=== PATIENT | female | born 1985 | race Caucasian/White ===

== ENCOUNTER 2017-05-06 19:48 | Observation (INO) | payer BC ==
[~2017-05-06] VITALS: Ht 162.6 cm; Wt 67.0 kg
[2017-05-06 20:13] VITALS: BP 121/64
[2017-05-06 20:36] LABS: MEAN CORPUSCULAR HEMOGLOBIN 31.4 pg (27.0-34.8); MEAN CORPUSCULAR HGB CONC 34.1 g/dL (32.4-35.8); MEAN PLATELET VOLUME 7.8 fL (7.4-10.4); PLATELET COUNT 248 x10^3/uL (130-400); RED BLOOD COUNT 4.43 x10^6/uL (3.82-5.3); RED CELL DISTRIBUTION WIDTH 13.1 % (9.6-15.2)
[2017-05-06 20:36] LABS: MICROSCOPIC AUTO
[2017-05-06 20:43] LABS: ALBUMIN 2.6 g/dL (3.4-5.0); ANION GAP 7 mmol/L (5-15); CALCIUM 8.5 mg/dL (8.5-10.1); CHLORIDE 108 mmol/L (98-107)
[2017-05-06 20:47] LABS: ALANINE AMINOTRANSFERASE 13 U/L (12-78); ALKALINE PHOSPHATASE 66 U/L (45-117); BILIRUBIN,TOTAL 0.4 mg/dL (0.2-1.0); CREATININE 0.47 mg/dL (0.55-1.02); TOTAL PROTEIN 6.4 g/dL (6.4-8.2)
[2017-05-06 21:04] LABS: BASOPHILS # (AUTO) 0.02 x10^3/uL (0-0.1); BASOPHILS % (AUTO) 0 % (0-1); EOSINOPHILS # (AUTO) 0.05 x10^3/uL (0-0.4); EOSINOPHILS % (AUTO) 0 % (1-7); LYMPHOCYTES # (AUTO) 2.19 x10^3/uL (1-3.4); LYMPHOCYTES % (AUTO) 9 % (22-44); MD SCAN; MONOCYTES # (AUTO) 1.44 x10^3/uL (0.2-0.8); MONOCYTES % (AUTO) 6 % (2-9); NEUTROPHILS # (AUTO) 20.69 x10^3/uL (1.8-6.8); NEUTROPHILS % (AUTO) 85 % (42-75)
[2017-05-06 21:24] LABS: RAPID INFLUENZA A Negative (Negative); RAPID INFLUENZA B Negative (Negative)
[2017-05-07] MEDS ORDERED: ACETAMINOPHEN 325 MG TABLET ONE ×2 (01:31→07:20)
[2017-05-07] MEDS: ACETAMINOPHEN 325 MG TABLET PO PRN ×2 (01:35→07:22)
== END 2017-05-07 09:30 | disposition home or self-care (01) ==
LOC: LDOP 19:48 → LDIP 05-07 01:34
PROVIDERS: ADMIT Obstetrics & Gynecology Gynecology; ATTEND Obstetrics & Gynecology Gynecology
DX: O32.1XX0 Maternal care for breech presentation, not applicable or unspecified (principal); O42.912 Preterm premature rupture of membranes, unspecified as to length of time between rupture and onset of labor, second trimester; Z37.0 Single live birth; Z80.3 Family history of malignant neoplasm of breast; Z3A.19 19 weeks gestation of pregnancy
CPT/HCPCS: 36415; 76815; 80053; 81001; 85025; 87086; 87400; G0378

== ENCOUNTER 2017-05-07 14:01 | Inpatient (IN) | payer BC ==
[~2017-05-07] VITALS: Ht 162.6 cm; Wt 66.0 kg
[2017-05-07] MEDS: MORPHINE SULFATE 4 MG/ML, 1ML IVPush PRN ×2 (14:45→15:15)
[2017-05-07] MEDS ORDERED: LACTATED RINGERS 1,000 ML IV SCH (14:49)
[2017-05-07] MEDS ORDERED: OXYTOCIN 30U/ 0.9% NaCL 500ML 500 ML IV ONE (14:49)
[2017-05-07] MEDS ORDERED: FENTANYL PF 100 MCG/2ML IVPush PRN (15:00)
[2017-05-07] MEDS ORDERED: FENTANYL PF 100 MCG/2ML IV PRN (15:00)
[2017-05-07] MEDS ORDERED: ONDANSETRON 2MG/ML, 2ML IVPush PRN (15:00)
[2017-05-07] MEDS ORDERED: PLEASE ENTER HEIGHT AND WEIGHT MC SCH (15:00)
[2017-05-07 15:24] LABS: MD YES; MEAN CORPUSCULAR HEMOGLOBIN 31.5 pg (27.0-34.8); MEAN CORPUSCULAR HGB CONC 34.7 g/dL (32.4-35.8); MEAN CORPUSCULAR VOLUME 90.8 fL (80-100); MEAN PLATELET VOLUME 7.7 fL (7.4-10.4); PLATELET COUNT 243 x10^3/uL (130-400); RED CELL DISTRIBUTION WIDTH 13.1 % (9.6-15.2)
[2017-05-07 15:51] LABS: <PLATELET ESTIMATE> ADEQUATE; <PLT MORPHOLOGY> NORMAL PLT MORPH; <RBC MORPHOLOGY> NORMAL; BAND#(MANUAL) 2.87 x10^3/uL; BANDS%(MANUAL) 9 % (0-7); LYMPH#(MANUAL) 0.64 x10^3/uL (1-3.4); LYMPHS% (MANUAL) 2 % (22-44); MONOS#(MANUAL) 0.64 x10^3/uL (0.3-2.7); MONOS% (MANUAL) 2 % (2-9); REACTIVE LYMPHS # (MANUAL) 0.32 x10^3/uL (0-0); REACTIVE LYMPHS % (MANUAL) 1 % (0-0); SEG#(MANUAL) 27.43 x10^3/uL (1.8-6.8); SEGS% (MANUAL) 86 % (42-75)
[2017-05-07] MEDS ORDERED: HYDROmorphone 1 MG/ML, 1ML ONE (16:57)
[2017-05-07] MEDS ORDERED: HYDROmorphone 2 MG/ML, 1ML IVPush PRN (17:00)
[2017-05-07] MEDS: AMPICILLIN 2 GM in SODIUM CHLORIDE 0.9% 50 ML IV SCH (18:00)
[2017-05-07] MEDS ORDERED: AMPICILLIN 2 GM in SODIUM CHLORIDE 0.9% 100 ML IV SCH (18:00)
[2017-05-07] MEDS ORDERED: OXYTOCIN 30U/ 0.9% NaCL 500ML 500 ML ONE (18:24)
[2017-05-07] MEDS ORDERED: GENTAMICIN 330 MG in SODIUM CHLORIDE 0.9% 100 ML IV SCH (19:00)
[2017-05-07] MEDS ORDERED: GENTAMICIN PER PHARMACY MC SCH (19:00)
[2017-05-07] MEDS ORDERED: PHARMACOKINETIC CONSULTATION MC ONE (19:00)
[2017-05-07] MEDS ORDERED: PHARMACOKINETIC MONITORING MC PRN (19:00)
[2017-05-07] MEDS ORDERED: ZOLPIDEM 5MG TABLET PO PRN (20:00)
[2017-05-07 20:42] VITALS: BP 112/62
[2017-05-08] MEDS: AMPICILLIN 2 GM in SODIUM CHLORIDE 0.9% 50 ML IV SCH ×2 (00:10→06:02)
[2017-05-08 05:40] LABS: MEAN CORPUSCULAR HEMOGLOBIN 31.6 pg (27.0-34.8); MEAN CORPUSCULAR HGB CONC 34.5 g/dL (32.4-35.8); MEAN CORPUSCULAR VOLUME 91.6 fL (80-100); MEAN PLATELET VOLUME 7.7 fL (7.4-10.4); PLATELET COUNT 237 x10^3/uL (130-400); RED BLOOD COUNT 4.01 x10^6/uL (3.82-5.3); RED CELL DISTRIBUTION WIDTH 12.9 % (9.6-15.2)
[2017-05-08 06:04] LABS: MD YES
[2017-05-08 06:06] LABS: LYMPH#(MANUAL) 2.37 x10^3/uL (1-3.4); LYMPHS% (MANUAL) 8 % (22-44)
[2017-05-08 06:07] LABS: BAND#(MANUAL) 0.59 x10^3/uL; BANDS%(MANUAL) 2 % (0-7); MONOS#(MANUAL) 1.18 x10^3/uL (0.3-2.7); MONOS% (MANUAL) 4 % (2-9); SEG#(MANUAL) 25.46 x10^3/uL (1.8-6.8); SEGS% (MANUAL) 86 % (42-75)
[2017-05-08 06:09] LABS: <PLATELET ESTIMATE> ADEQUATE; <PLT MORPHOLOGY> NORMAL PLT MORPH
[2017-05-08 06:10] LABS: <RBC MORPHOLOGY> NORMAL
[2017-05-08 07:52] VITALS: BP 105/57
[2017-05-08] MEDS ORDERED: RHOGAM FROM BLOOD BANK 1 NOTE EA IM/IV ONE (08:00)
== END 2017-05-08 08:55 | disposition home or self-care (01) | DRG 779 ==
LOC: LDOP 14:01 → LDIP 14:32
PROVIDERS: ADMIT Obstetrics & Gynecology Gynecology; ATTEND Obstetrics & Gynecology Gynecology
PROC: 10E0XZZ Delivery of Products of Conception, External Approach (ICD-10-PCS; principal; 2017-05-07)
PROC: 30233S1 Transfusion of Nonautologous Globulin into Peripheral Vein, Percutaneous Approach (ICD-10-PCS; 2017-05-07)
DX: O03.9 Complete or unspecified spontaneous abortion without complication (principal); O41.1220 Chorioamnionitis, second trimester, not applicable or unspecified; O42.912 Preterm premature rupture of membranes, unspecified as to length of time between rupture and onset of labor, second trimester; Z3A.19 19 weeks gestation of pregnancy; Z80.3 Family history of malignant neoplasm of breast; Z82.49 Family history of ischemic heart disease and other diseases of the circulatory system; Z83.3 Family history of diabetes mellitus; Z81.8 Family history of other mental and behavioral disorders; Z84.1 Family history of disorders of kidney and ureter; Z88.1 Allergy status to other antibiotic agents; Z37.1 Single stillbirth
CPT/HCPCS: 36415; 80170; 85025; 86850; 86900; 88305; J0290; J1170; J2790; J1580; J2590; J7120

== ENCOUNTER 2018-06-01 18:14 | Inpatient (IN) | payer BC ==
[~2018-06-01] VITALS: Ht 162.6 cm; Wt 79.0 kg
[2018-06-01] MEDS ORDERED: OXYTOCIN 30U/ 0.9% NaCL 500ML 500 ML IV ONE (18:32)
[2018-06-01] MEDS ORDERED: D5%-LACTATED RINGERS 1,000 ML IV SCH (18:32)
[2018-06-01] MEDS ORDERED: LACTATED RINGERS 1,000 ML IV SCH (18:32)
[2018-06-01 18:54] VITALS: BP 139/76
[2018-06-01] MEDS ORDERED: SODIUM CITRATE/CITRIC ACID 30 ML UDC PO PRN (19:00)
[2018-06-01] MEDS ORDERED: ONDANSETRON 2MG/ML, 2ML IVPush PRN (19:00)
[2018-06-01] MEDS ORDERED: FENTANYL PF 100 MCG/2ML IVPush PRN (19:00)
[2018-06-01] MEDS ORDERED: TERBUTALINE 1 MG/ML, 1ML IVPush PRN (19:00)
[2018-06-01] MEDS ORDERED: SODIUM CHLORIDE FLUSH 10ML SYR IVF PRN (19:00)
[2018-06-01] MEDS ORDERED: FENTANYL PF 100 MCG/2ML IV PRN (19:00)
[2018-06-01] MEDS ORDERED: METOCLOPRAMIDE 5 MG/ML, 2ML IVPush PRN (19:00)
[2018-06-01 19:03] LABS: MEAN CORPUSCULAR HGB CONC 35.1 g/dL (32.4-35.8); MEAN CORPUSCULAR VOLUME 88.2 fL (80-100); MEAN PLATELET VOLUME 8.3 fL (7.4-10.4); PLATELET COUNT 243 x10^3/uL (130-400); RED BLOOD COUNT 4.83 x10^6/uL (3.82-5.3); RED CELL DISTRIBUTION WIDTH 14.1 % (9.6-15.2)
[2018-06-01] MEDS ORDERED: NEWBORN KIT ONE (19:15)
[2018-06-01] MEDS ORDERED: OXYTOCIN 30U/ 0.9% NaCL 500ML 0 ML ONE (19:15)
[2018-06-01] MEDS ORDERED: LIDOCAINE 1%, 20ML ONE (19:15)
[2018-06-01] MEDS ORDERED: MISOPROSTOL 200 MCG TABLET ONE (19:15)
[2018-06-01 19:51] LABS: BASOPHILS # (AUTO) 0.05 x10^3/uL (0-0.1); BASOPHILS % (AUTO) 0 % (0-1); EOSINOPHILS # (AUTO) 0.06 x10^3/uL (0-0.4); EOSINOPHILS % (AUTO) 0 % (1-7); LYMPHOCYTES # (AUTO) 2.48 x10^3/uL (1-3.4); LYMPHOCYTES % (AUTO) 13 % (22-44); MONOCYTES # (AUTO) 1.02 x10^3/uL (0.2-0.8); MONOCYTES % (AUTO) 5 % (2-9); NEUTROPHILS # (AUTO) 15.24 x10^3/uL (1.8-6.8); NEUTROPHILS % (AUTO) 81 % (42-75)
[2018-06-01 19:52] LABS: MD SCAN
[2018-06-02] MEDS ORDERED: FENTANYL PF 100 MCG/2ML ONE (06:27)
[2018-06-02] MEDS ORDERED: LACTATED RINGERS 1,000 ML IV SCH (06:28)
[2018-06-02] MEDS ORDERED: FENTANYL/BUPIV./NS/PF 250 ML EPIDCONT SCH (06:28)
[2018-06-02] MEDS ORDERED: LACTATED RINGERS 1,000 ML IVBOLUS PRN ×2 (06:30→12:00)
[2018-06-02] MEDS ORDERED: FENTANYL PF 500 MCG, BUPIVACAINE/PF 0.5%, 30ML 62.5 ML in SODIUM CHLORIDE 0.9% 177.5 ML EPIDCONT SCH (07:00)
[2018-06-02] MEDS ORDERED: BUPIVACAINE 0.25% ONE (07:08)
[2018-06-02] MEDS ORDERED: LIDOCAINE/PF 1.5%-EPI 1:200K, 30ML ONE (07:11)
[2018-06-02] MEDS: OXYTOCIN 30U/ 0.9% NaCL 500ML 500 ML IV SCH ×2 (10:36→20:36)
[2018-06-02] MEDS ORDERED: MAGNESIUM HYDROXIDE 8%, 30ML UDC PO PRN (11:00)
[2018-06-02] MEDS ORDERED: OXYcodone IR 5MG TABLET PO PRN (11:00)
[2018-06-02] MEDS ORDERED: MEASLES,MUMPS&RUBELLA VACC/PF 0.5 ML SQ-VACC PRN (11:00)
[2018-06-02] MEDS ORDERED: RHOGAM FROM BLOOD BANK 1 NOTE EA IM/IV ONE (11:00)
[2018-06-02] MEDS ORDERED: DIPH,PERTUSS(ACELL),TET VAC/PF NC IM-VACC PRN (11:00)
[2018-06-02] MEDS ORDERED: MISOPROSTOL 200 MCG TABLET PR PRN (11:00)
[2018-06-02] MEDS ORDERED: ONDANSETRON 2MG/ML, 2ML IV PRN (11:00)
[2018-06-02] MEDS ORDERED: CALCIUM CARBONATE 500 MG TAB.CHEW PO PRN (11:00)
[2018-06-02] MEDS: FENTANYL/BUPIV./NS/PF 250 ML EPIDCONT SCH (11:40)
[2018-06-02] MEDS: LACTATED RINGERS 1,000 ML IV SCH ×2 (11:40→19:40)
[2018-06-02] MEDS ORDERED: EPHEDRINE 50 MG/ML, 1ML IVPush PRN (12:00)
[2018-06-02] MEDS ORDERED: DIPHENHYDRAMINE 50 MG/ML, 1ML IVPush PRN (12:00)
[2018-06-02] MEDS ORDERED: NALOXONE 0.4 MG/ML, 1ML IVPush PRN (12:00)
[2018-06-02] MEDS ORDERED: ONDANSETRON 2MG/ML, 2ML IVPush PRN (12:00)
[2018-06-02 12:20] VITALS: BP 124/79
[2018-06-02 16:30] VITALS: BP 128/79
[2018-06-02] MEDS: IBUPROFEN 600 MG TABLET PO PRN (17:45)
[2018-06-02] MEDS: DOCUSATE 100 MG CAPSULE PO PRN (17:45)
[2018-06-02 18:28] LABS: MEAN CORPUSCULAR HEMOGLOBIN 30.7 pg (27.0-34.8); MEAN CORPUSCULAR HGB CONC 34.7 g/dL (32.4-35.8); MEAN CORPUSCULAR VOLUME 88.4 fL (80-100); MEAN PLATELET VOLUME 8.4 fL (7.4-10.4); PLATELET COUNT 273 x10^3/uL (130-400); RED BLOOD COUNT 4.26 x10^6/uL (3.82-5.3); RED CELL DISTRIBUTION WIDTH 14.4 % (9.6-15.2)
[2018-06-02 18:46] LABS: BASOPHILS % (AUTO) 0 % (0-1); EOSINOPHILS # (AUTO) 0.02 x10^3/uL (0-0.4); EOSINOPHILS % (AUTO) 0 % (1-7); LYMPHOCYTES # (AUTO) 3.44 x10^3/uL (1-3.4); LYMPHOCYTES % (AUTO) 13 % (22-44); MD SCAN; MONOCYTES # (AUTO) 2.15 x10^3/uL (0.2-0.8); MONOCYTES % (AUTO) 8 % (2-9); NEUTROPHILS # (AUTO) 19.91 x10^3/uL (1.8-6.8); NEUTROPHILS % (AUTO) 78 % (42-75)
[2018-06-02 20:00] VITALS: BP 110/71
[2018-06-02 23:50] VITALS: BP 114/72
[2018-06-03] MEDS: IBUPROFEN 600 MG TABLET PO PRN ×4 (01:59→19:33)
[2018-06-03] MEDS: DOCUSATE 100 MG CAPSULE PO PRN ×2 (01:59→08:10)
[2018-06-03] MEDS: LACTATED RINGERS 1,000 ML IV SCH ×3 (03:40→19:40)
[2018-06-03 04:00] VITALS: BP 119/75
[2018-06-03] MEDS: OXYTOCIN 30U/ 0.9% NaCL 500ML 500 ML IV SCH ×2 (06:36→11:49)
[2018-06-03 08:00] VITALS: BP 109/74
[2018-06-03] MEDS: PRENATAL VIT/IRON/FA 1 EACH TABLET PO SCH (08:10)
[2018-06-03] MEDS: FENTANYL/BUPIV./NS/PF 250 ML EPIDCONT SCH (11:40)
[2018-06-03 19:15] VITALS: BP 129/80
[2018-06-03] MEDS: OXYcodone/APAP 5/325MG TABLET PO PRN (19:33)
[2018-06-04] MEDS: OXYcodone/APAP 5/325MG TABLET PO PRN ×3 (00:10→08:58)
[2018-06-04] MEDS: OXYTOCIN 30U/ 0.9% NaCL 500ML 500 ML IV SCH (01:00)
[2018-06-04] MEDS: IBUPROFEN 600 MG TABLET PO PRN (04:40)
[2018-06-04] MEDS ORDERED: IBUP-1222 PO (08:52)
[2018-06-04] MEDS ORDERED: OXYC-302 PO (08:52)
[2018-06-04] MEDS: DOCUSATE 100 MG CAPSULE PO PRN (08:58)
[2018-06-04] MEDS: PRENATAL VIT/IRON/FA 1 EACH TABLET PO SCH (08:58)
[2018-06-04 09:00] VITALS: BP 121/79
== END 2018-06-04 12:35 | disposition home or self-care (01) | DRG 807 ==
LOC: LDOP 18:14 → LDIP 18:32 → 2NW 06-02 12:15
PROVIDERS: ADMIT Obstetrics & Gynecology Gynecology; ATTEND Obstetrics & Gynecology Gynecology
PROC: 10D07Z6 Extraction of Products of Conception, Vacuum, Via Natural or Artificial Opening (ICD-10-PCS; principal; 2018-06-02)
PROC: 0KQM0ZZ Repair Perineum Muscle, Open Approach (ICD-10-PCS; 2018-06-02)
PROC: 3E0R3BZ Introduction of Anesthetic Agent into Spinal Canal, Percutaneous Approach (ICD-10-PCS; 2018-06-02)
PROC: 00HU33Z Insertion of Infusion Device into Spinal Canal, Percutaneous Approach (ICD-10-PCS; 2018-06-02)
PROC: 30233S1 Transfusion of Nonautologous Globulin into Peripheral Vein, Percutaneous Approach (ICD-10-PCS; 2018-06-02)
DX: O75.81 Maternal exhaustion complicating labor and delivery (principal); Z37.0 Single live birth; Z3A.38 38 weeks gestation of pregnancy; O70.1 Second degree perineal laceration during delivery
CPT/HCPCS: 36415; J2790; 82803; 85025; 85461; 86850; 86900; G0378; J3010; J3490; J7120

== ENCOUNTER 2020-04-05 09:13 | Day surgery (SDC) | payer BC, OTHER ==
[~2020-04-05] VITALS: Ht 165.1 cm; Wt 73.5 kg
[~2020-04-05 09:13] MED LIST: IBUP-1222 PO; OXYC-302 PO
[2020-04-05] MEDS ORDERED: LIDOCAINE-MPF 1%, 2ML INFIL ONE (10:00)
[2020-04-05] MEDS ORDERED: LACTATED RINGERS 1,000 ML IV SCH (10:00)
[2020-04-05] MEDS ORDERED: CHLORHEXIDINE 15 ML UDC MM ONE (10:00)
[2020-04-05 10:10] VITALS: BP 115/73
[2020-04-05] MEDS ORDERED: MISOPROSTOL 200 MCG TABLET ONE (10:17)
[2020-04-05] MEDS ORDERED: OXYTOCIN 10 UNITS/ML, 1ML ONE ×2 (10:17→10:36)
[2020-04-05] MEDS ORDERED: METHYLERGONOVINE 0.2 MG/ML IM ONE (10:18)
[2020-04-05] MEDS ORDERED: MIDAZOLAM 1 MG/ML, 2ML ONE ×2 (10:32→12:57)
[2020-04-05] MEDS ORDERED: FENTANYL PF 100 MCG/2ML ONE (10:33)
[2020-04-05 10:34] LABS: BASOPHILS % (AUTO) 1 % (0-1); EOSINOPHILS % (AUTO) 1 % (1-7); LYMPHOCYTES % (AUTO) 29 % (22-44); MEAN CORPUSCULAR HEMOGLOBIN 26.6 pg (27.0-34.8); MEAN CORPUSCULAR HGB CONC 33.6 g/dL (32.4-35.8); MEAN PLATELET VOLUME 7.6 fL (7.4-10.4); MONOCYTES % (AUTO) 7 % (2-9); NEUTROPHILS % (AUTO) 61 % (42-75); PLATELET COUNT 305 x10^3/uL (130-400); RED BLOOD COUNT 5.23 x10^6/uL (3.82-5.3); RED CELL DISTRIBUTION WIDTH 20.9 % (9.6-15.2)
[2020-04-05] MEDS ORDERED: SILVER NITRATE STICK TP ONE (11:00)
[2020-04-05] MEDS ORDERED: PROMETHAZINE 25 MG/ML, 1ML IVPush PRN (11:00)
[2020-04-05] MEDS ORDERED: FENTANYL PF 100 MCG/2ML IV PRN (11:00)
[2020-04-05] MEDS ORDERED: HYDROmorphone 1 MG/ML, 1ML INJ IVPush PRN (11:00)
[2020-04-05] MEDS ORDERED: MEPERIDINE/PF 25MG/0.5ML IVPush PRN (11:00)
[2020-04-05] MEDS ORDERED: KETOROLAC 30 MG/1 ML IVPush PRN (11:00)
[2020-04-05] MEDS ORDERED: OXYcodone 5 MG/5 ML ORAL.SOL UDC PO PRN (11:00)
[2020-04-05] MEDS ORDERED: HYDROcodone/APAP 7.5-325MG/15ML UDC PO PRN (11:00)
[2020-04-05] MEDS ORDERED: ONDANSETRON 2MG/ML, 2ML ONE (12:04)
[2020-04-05] MEDS ORDERED: PROPOFOL 10 MG/ML, 20ML ONE (12:04)
[2020-04-05] MEDS ORDERED: CEFAZOLIN 1,000 MG ONE (12:04)
[2020-04-05] MEDS ORDERED: DEXAMETHASONE 4 MG/ML, 1ML ONE (12:04)
[2020-04-05 13:03] LABS: MD SCAN
== END 2020-04-05 14:00 | disposition home or self-care (01) ==
LOC: OUT 09:13
PROVIDERS: ATTEND Obstetrics & Gynecology
DX: O02.1 Missed abortion (principal); Z20.828 Contact with and (suspected) exposure to other viral communicable diseases; Z79.899 Other long term (current) drug therapy; Z88.1 Allergy status to other antibiotic agents; Z90.49 Acquired absence of other specified parts of digestive tract; Z98.890 Other specified postprocedural states
CPT/HCPCS: 36415; 59820; 76998; 85025; 86850; 86870; 86900; 86922; 87635; 88305; J0690; J1100; J2250; J2405; J2590; J2704; J3010; J7120; 86923; J2210